=== PATIENT | male | born 1995 | race Caucasian/White ===

== ENCOUNTER 2016-08-05 18:41 | Emergency (ER) | payer OTHER ==
--- NOTE | 2016-08-05 21:00 | ER NURSING DOCUMENTATION ---
Nurse's Notes [facility] Name:Avinash Campos Age:21 yrs Sex:Male :1995 Arrival Date:08/05/2016 Time:18:41 Bed3 Private MD: Diagnosis:Hand Laceration Presentation: 08/05 19:03 Acuity: MEGA 4 nf 19:29 Presenting complaint: Patient states: laceration to right middle finger. Transition of 2 care: patient was not received from another setting of care. 19:29 Method Of Arrival: Walk In [facility] Triage Assessment: 19:30 General: Appears in no apparent distress, Behavior is appropriate for age. Pain: bw2 Complains of pain in left middle finger. Musculoskeletal: No deficits noted. Injury Description: Laceration was sustained 1-2 hours ago. 2-4 hours ago. is bleeding a small amount. Historical: - Allergies: No known drug Allergies; - Tetanus: < 10 years. - Ebola Screening: : Patient negative for fever greater than or equal to 101.5 degrees Fahrenheit, and additional compatible Ebola Virus Disease symptoms. Patient denies exposure to infectious person. Patient denies travel to an Ebola-affected area in the 21 days before illness onset. No symptoms or risks identified at this time. . - Immunization history: Flu Vaccine None. - Social history: Smoking status: Patient uses tobacco products, current every day smoker. Screenin:30 Infectious Disease Risk None. Abuse screen: Denies threats or abuse. Denies injuries bw2 from another. Nutritional screening: No deficits noted. Assessment: 19:30 See Triage Assessment done by same RN. 2 Vital Signs: 19:27 BP 153 / 87; Pulse 99; Resp 16; Temp 99.1(O); Pulse Ox 95% on R/A; Weight 130 kg (R); arc Height 6 ft. 2 in. (190 cm); Pain 1/10; 20:57 BP 150 / 60; Pulse 95; Resp 18; Temp 97.8; Pulse Ox 95% on R/A; Pain 0/10; bw2 19:27 Body Mass Index 36.01 (130.00 kg, 190 cm) arc ED Course: 18:59 Patient arrived in ED. cj 19:03 Triage completed. nf 19:24 Marielle Scott is Primary Nurse. 2 19:28 Rudy Hamlin MD is Attending Physician. in 19:31 Valuables Remains with patient Bed in low position. Side rails up X 1. bw2 20:18 Wound care to laceration located on palmar aspect of proximal phalanx of left middle em3 finger was cleaned with Hibiclens, Irrigation Normal Saline Patient tolerated well. 20:53 Wound care was dressed with bacitracin band aid. bw2 Administered Medications: No medications were administered Outcome: 20:54 Discharge ordered by . in 20:57 Discharged to home ambulatory, with friend. bw2 20:57 Condition: good 20:57 Discharge Assessment: Patient awake, alert and oriented x 3. No cognitive and/or functional deficits noted. Patient verbalized understanding of disposition instructions. 20:57 Discharge instructions given to patient, friend, Instructed on discharge instructions, follow up and referral plans. Demonstrated understanding of instructions. 20:59 Patient left the ED. bw2 Signatures: Wendy Leung RN RN Rudy Ordaz MD MD [facility] Magan 3 Elsa Hamlin Reg Reg arc Jones, Carissa Marielle Scott bw2
--- NOTE | 2016-08-05 21:00 | ER PHYSICIAN DOCUMENTATION ---
Physician Documentation [facility] Name:Avinash Campos Age:21 yrs Sex:Male :1995 Arrival Date:08/05/2016 Time:18:41 Bed3 Private MD: Rudy Singh Disposition: 08/05/16 20:54 Discharged to Home/Self Care. Impression: Hand Laceration. - Condition is Good. - Discharge Instructions: LACERATION, Hand. - Medical Reconciliation form form. - Follow up: Emergency Department; When: 7 - 10 days; Reason: Staple/Suture removal. - Problem is new. - Symptoms have improved. HPI: 08/05 20:50 This 21 yrs old Male presents to ER via Walk In with complaints of Hand sc Injury. 20:50 The patient or guardian reports a laceration. The complaints affect the palmar aspect sc of proximal phalanx of left middle finger. Context: The problem was sustained at home, resulted from catching broken glass. Onset: The symptom(s)/episode began/occurred just prior to arrival. Modifying factors: the symptoms are aggravated by nothing. Associated signs and symptoms: The patient has no apparent associated signs or symptoms. Historical: - Allergies: No known drug Allergies; - Tetanus: < 10 years. - Ebola Screening: : Patient negative for fever greater than or equal to 101.5 degrees Fahrenheit, and additional compatible Ebola Virus Disease symptoms. Patient denies exposure to infectious person. Patient denies travel to an Ebola-affected area in the 21 days before illness onset. No symptoms or risks identified at this time. . - Immunization history: Flu Vaccine None. - Social history: Smoking status: Patient uses tobacco products, current every day smoker. ROS: 20:50 Constitutional: Negative for fever, chills, and weight loss. sc Eyes: Negative for injury, pain, redness, and discharge. Cardiovascular: Negative for chest pain, palpitations, and edema. Respiratory: Negative for shortness of breath, cough, wheezing, and pleuritic chest pain. 20:50 Back: Negative for injury and pain. sc 20:50 MS/extremity: Positive for laceration. 20:50 Neuro: Positive for numbness. Exam: Constitutional: This is a well developed, well nourished patient who is awake, alert, and in no acute distress. Head/Face: Normocephalic, atraumatic. Eyes: Pupils equal round and reactive to light, extra-ocular motions intact. Lids and lashes normal. Conjunctiva and sclera are non-icteric and not injected. Cornea within normal limits. Periorbital areas with no swelling, redness, or edema. 20:51 Chest/axilla: Normal chest wall appearance and motion. Nontender with no deformity. sc No lesions are appreciated. 20:51 Musculoskeletal/extremity: Extremities: grossly normal except: laceration, numbness, decreased sensation. 20:51 Skin: Exam negative for acute changes. Vital Signs: 19:27 BP 153 / 87; Pulse 99; Resp 16; Temp 99.1(O); Pulse Ox 95% on R/A; Weight 130 kg (R); arc Height 6 ft. 2 in. (190 cm); Pain 1/10; 20:57 BP 150 / 60; Pulse 95; Resp 18; Temp 97.8; Pulse Ox 95% on R/A; Pain 0/10; bw2 19:27 Body Mass Index 36.01 (130.00 kg, 190 cm) arc Laceration: 20:51 Wound Repair of 1.5cm ( 0.6in ) subcutaneous laceration to left hand and palmar aspect sc of proximal phalanx of left middle finger. Linear shaped.. Distal neuro/vascular/tendon intact. Anesthesia: Digital block administered with 2 mls of 2% lidocaine. Wound prep: Moderate cleansing by vascular ultrasound technician. Skin closed with 5 4-0 Ethilon using Horizontal mattress sutures. Dressed with Bacitracin, tube gauze. Patient tolerated well. MDM: 19:28 Patient medically screened. sc 20:52 Differential diagnosis: prob minor nerve injury as evidenced by slight numbness but sc tendons intact. Data reviewed: vital signs, nurses notes, and as a result, I will discharge patient. Counseling: I had a detailed discussion with the patient and/or guardian regarding: the historical points, exam findings, and any diagnostic results supporting the discharge/admit diagnosis, the need for outpatient follow up, for a recheck. 08/05 19:41 Order name: Wound Care; Complete Time: 19:53 sc Dispensed Medications: No medications were administered Signatures: Rudy Hamlin MD MD mi Marielle Scott 2
== END 2016-08-05 21:00 | disposition home or self-care (01) ==
LOC: ER 18:41
DX: S61.213A Laceration without foreign body of left middle finger without damage to nail, initial encounter (principal); W25.XXXA Contact with sharp glass, initial encounter; Y92.019 Unspecified place in single-family (private) house as the place of occurrence of the external cause; F17.210 Nicotine dependence, cigarettes, uncomplicated
CPT/HCPCS: 12041; 99283